=== PATIENT | female | born 1965 | race Caucasian/White ===

== ENCOUNTER 2018-03-28 09:43 | Emergency (ER) | payer OTHER ==
[2018-03-28 11:07] VITALS: BP 145/75
--- NOTE | 2018-03-28 11:35 | UC ---
Eye Complaint HPI - HPI Summary HPI Summary: The patient is a 52-year-old female with the onset of red itchy eyes that started yesterday. She is not a contact lens wear. She states they feel dry and irritated. She has no URI symptoms. She had similar but less severe symptoms about 2 months ago. - History of Current Complaint Chief Complaint: UCEye Stated Complaint: BILATERAL EYE CONCERN Time Seen by Provider: 03/28/18 11:30 Hx Obtained From: Patient Hx Last Menstrual Period: 11/2016 Onset/Duration: Gradual Onset, Lasting Hours Timing: Constant Severity Initially: Moderate Pain Intensity: 0 Pain Scale Used: 0-10 Numeric Location of Injury: Conjunctiva Aggravating Factor(s): Nothing Alleviating Factor(s): Nothing Associated Signs And Symptoms: Positive: Drainage (Purulent) - Allergies/Home Medications Allergies/Adverse Reactions: Allergies Allergy/AdvReac Type Severity Reaction Status Date / Time amoxicillin Allergy Hives Verified 03/28/18 11:01 Home Medications: Home Medications Cholecalciferol TAB* [Vitamin D TAB*] 1,000 unit PO DAILY 03/28/18 [History Confirmed 03/28/18] Sertraline* [Zoloft*] 100 mg PO DAILY 03/28/18 [History Confirmed 03/28/18] Simvastatin TAB(NF) [Zocor(NF)] 20 mg PO EVERY OTHER DAY 03/28/18 [History Confirmed 03/28/18] PMH/Surg Hx/FS Hx/Imm Hx Previously Healthy: Yes Endocrine History: Dyslipidemia Psychological History: Depression - Surgical History Surgical History: Yes Surgery Procedure, Year, and Place: D&Cs, 2007 2006 - Family History Known Family History: Positive: Hypertension - Social History Alcohol Use: Occasionally Substance Use Type: None Smoking Status (MU): Former Smoker Length of Time of Smoking/Using Tobacco: 1/2 PPD x 15 Years When Did the Patient Quit Smoking/Using Tobacco: 2006 Review of Systems All Other Systems Reviewed And Are Negative: Yes Constitutional: Positive: Negative Skin: Positive: Negative Eyes: Positive: Drainage, Eye Redness ENT: Positive: Negative Respiratory: Positive: Negative Cardiovascular: Positive: Negative Gastrointestinal: Positive: Negative Genitourinary: Positive: Negative Motor: Positive: Negative Neurovascular: Positive: Negative Musculoskeletal: Positive: Negative Neurological: Positive: Negative Psychological: Positive: Negative Physical Exam Triage Information Reviewed: Yes Appearance: Well-Appearing, No Pain Distress, Well-Nourished Vital Signs: Initial Vital Signs Temp 98.2 F 03/28/18 10:58 Pulse 80 03/28/18 10:58 Resp 18 03/28/18 10:58 BP 145/75 03/28/18 10:58 Pulse Ox 98 03/28/18 10:58 Eyes: Positive: Conjunctiva Inflamed, Other: - eomi/perrl ENT: Positive: Hearing grossly normal, Uvula midline. Negative: Nasal congestion, Nasal drainage, Tonsillar swelling, Tonsillar exudate, Trismus, Muffled voice, Hoarse voice, Dental tenderness, Sinus tenderness Neck: Positive: Supple, Nontender, No Lymphadenopathy Respiratory: Positive: Lungs clear, Normal breath sounds, No respiratory distress, No accessory muscle use Cardiovascular: Positive: RRR, No Murmur Musculoskeletal: Positive: ROM Intact, No Edema Neurological: Positive: Alert, Muscle Tone Normal Psychological Exam: Normal Skin Exam: Normal Eye Complaint Course/Dx - Differential Dx/Diagnosis Provider Diagnosis: Conjunctivitis, both eyes Discharge - Sign-Out/Discharge Documenting (check all that apply): Patient Departure All imaging exams completed and their final reports reviewed: No Studies - Discharge Plan Condition: Stable Disposition: HOME Prescriptions: Polymyx/Trimethoprim OPTH* [Polytrim OPHTH*] 1 - 2 drop BOTH EYES QID #1 btl Patient Education Materials: Conjunctivitis (ED) Referrals: Preeti Stewart PA [Primary Care Provider] - Additional Instructions: I suggest you use ZADITOR eye drops OTC as well as the drops prescribed recheck in 4 days if not better recheck sooner for new or worsening symptoms - Billing Disposition and Condition Condition: STABLE Disposition: Home
== END 2018-03-28 11:59 | disposition home or self-care (01) ==
LOC: UCCORT 09:43
DX: H10.9 Unspecified conjunctivitis (principal); Z88.0 Allergy status to penicillin; Z87.891 Personal history of nicotine dependence
CPT/HCPCS: 99202; G0463

== ENCOUNTER 2019-07-06 09:15 | Emergency (ER) | payer BC, OTHER ==
--- OUTSIDE RECORDS SUMMARY | 2019-07-06 09:50 | XMS REPORT | Continuity of Care Document ---
:1965 External Reference #:[id number] Author Name Preeti Stewart PA (transmitted by agent of provider Sonia Alcaraz) Address [address] [place] [address] Care Team Providers Name Role Phone Preeti Stewart PA - Medical Care Team Information Patient Financial Representative [phone] Problems Active Problems Provider Date Hyperlipidemia Preeti Stewart PA Onset: 09/13/2017 Anxiety state Preeti Stewart PA Onset: 09/13/2017 Social History Type Date Description Comments Sex Unknown ETOH Use Occasionally consumes alcohol Tobacco Use Start: Unknown End: Patient is a former smoker Started at 19. Unknown Infrequent smoker. Quit completely at age 39. Smoking Status Reviewed: 01/22/19 Patient is a former smoker Started at 19. Infrequent smoker. Quit completely at age 39. Allergies, Adverse Reactions, Alerts Active Allergies Reaction Severity Comments Date Amoxicillin 09/13/2017 Medications Active Medications SIG Qnty Indications Ordering Provider Date Sertraline HCL 1 tab by mouth 90tabs F41.9 Lorna Bynum, 06/26/2019 100mg every day MD Tablets Simvastatin Take 1 Tablet By 90tabs Lorna Bynum, 20mg Mouth Once Daily MD Tablets AT Bedtime Metoprolol Tartrate Take 1 Tablet By 90tabs Lorna Bynum, Mouth Once Daily MD 25mg Tablets Vitamin D One Tab PO Daily Unknown 1000 Medications Administered in Office Medication SIG Qnty Indications Ordering Provider Date PPD Injection Preeti Stewart PA 09/13/2017 Immunizations Description No Information Available Vital Signs Date Vital Result Comment 01/22/2019 9:35am BP Systolic 120 mmHg BP Diastolic 68 mmHg Body Temperature 98.0 F Heart Rate 78 /min Respiratory Rate 18 /min Height 63.5 inches 5'3.50" Weight 223.00 lb BMI (Body Mass Index) 38.9 kg/m2 BSA (Body Surface Area) 2.04 m2 [place] body weight in kilograms 53 kg O2 % BldC Oximetry 97 % 07/24/2018 10:39am BP Systolic Sitting Right Arm 118 mmHg BP Diastolic Sitting Right Arm 72 mmHg Body Temperature 97.7 F Heart Rate 78 /min Height 63.5 inches 5'3.50" Weight 221.00 lb BMI (Body Mass Index) 38.5 kg/m2 BSA (Body Surface Area) 2.03 m2 [place] body weight in kilograms 53 kg O2 % BldC Oximetry 98 % Results Test Acquired Date Facility Test Result H/L Range Note CBC 01/30/2019 [facility] White Blood 5.2 K/uL Normal 3.1-10.7 1 W/Automated [address] [place] [address] [phone] Red Blood Count 4.59 M/uL Normal 3.90-5.40 Hemoglobin 13.4 gm/dL Normal 11.6-15.8 Hematocrit 41.5 % Normal 36.0-46.1 Mean Cell Volume 90.4 fl Normal 80.9-99.0 Mean Corpuscular HGB 29.2 pg Normal 25.9-32.7 Mean Corpuscular HGB Conc 32.3 g/dL Normal 30.8-34.3 Platelet Count 307 K/uL Normal 155-360 Red Cell Distri Width SD 41.9 fl Normal 36-47 Red Cell Distri Width %CV 12.7 % Normal 11.7-14.4 Mean Platelet Volume 10.7 fl Normal 8.9-12.4 Neut% 58.8 % Normal 40.4-72.8 Lymph % 29.4 % Normal 20.0-42.0 [place] % 8.7 % Normal 4.3-13.2 Eo% 1.9 % Normal 0.0-6.6 Bas% 1.0 % Normal 0.0-1.1 Immature Grans 0.2 % Normal 0.0-5.0 NRBC % 0.0 /100WBC < 10/ 100 WBC Neut# 3.04 K/uL Normal 1.8-7.0 Lymph # 1.52 K/uL Normal 1.0-4.0 [place] # 0.45 K/uL Normal 0.3-0.9 Eos # 0.10 K/uL Normal 0.0-0.5 Baso # 0.05 K/uL Normal 0.0-0.1 Immature Grans Absolute 0.01 K/uL NRBC # 0.00 K/uL Comprehensive 01/30/2019 [facility] Glucose 100 mg/dL Normal 74-106 Metabolic Panel [address] [place] [address] [phone] BUN 9 mg/dL Normal 7-18 Creatinine 0.8 mg/dL Normal 0.6-1.3 Glom Filtration Rate, Estimate >60 mL/min >60 If >60 mL/min >60 2 BUN/Creat 11.2 ratio Sodium 137 mmol/L Normal 136-145 Potassium 4.2 mmol/L Normal 3.5-5.1 Chloride 108 mmol/L High 98-107 Carbon Dioxide 25 mmol/L Normal 21-32 Anion Gap 4 mEq/L Low 8-16 Calcium 8.5 mg/dL Normal 8.5-10.1 Total Protein 7.2 g/dL Normal 6.4-8.2 Albumin 3.9 g/dL Normal 3.4-5.0 Globulin 3.3 g/dL Normal 1.9-4.3 Alb/Glob 1.2 ratio Bilirubin,Total 0.6 mg/dL Normal 0.2-1.0 Sgot/Ast 21 U/L Normal 15-37 SGPT/Alt 30 U/L Normal 12-78 Alkaline Phosphatase 73 U/L Normal 45-117 Reflex add FT3? Y Reflex add FT4? Y TSH Reflex 01/30/2019 [facility] Thyroid Stim 1.35 uIU/mL Normal 0.30-4.20 FT4 And/Or [address] Hormone FT3 [place], [place] [id number] [phone] Reflex add FT3? Y Reflex add FT4? Y LDL Cholesterol Profile 01/30/2019 [facility] Cholesterol 182 mg/dL <[address] [place], [place] [id number] [phone] Triglycerides 93 mg/dL <150 4 HDL Cholesterol 58 mg/dL >40 5 LDL-Cholesterol 105 mg/dL < 100 6 Reflex add FT3? Y Reflex add FT4? Y Laboratory test 01/30/2019 [facility] Vitamin 38.0 30.0-100.0 7 finding [address] Johnson,25-Hydroxy ng/[place] [address] [phone] 1 E66.9 E78.5 E55.9 2 Note: Persistent reduction for 3 months or more in an eGFR <60 mL/min/1.73 m2 defines CKD. Patients with eGFR values >/=60 mL/min/1.73 m2 may also have CKD if evidence of persistent proteinuria is present. The original MDRD equation for estimated GFR is not valid for patients less than 18 years of age. Additional information may be found at www.kdoqi.org. 3 Reference Guidelines*: Desirable: ........... < 200 mg/dL Borderline High: ..... 200-239 mg/dL High: ................ >= 240 mg/dL * The National Cholesterol Education Program (NCEP) 4 Reference Guidelines*: Normal: ............. < 150 mg/dL Borderline High: .... 150-199 mg/dL High: ............... 200-499 mg/dL Very High: .......... > 500 mg/dL * Source: National Cholesterol Education Program (NCEP) 5 Reference Guidelines*: Low HDL: ..... < 40 mg/dL Normal: ..... 40-60 mg/dL Desirable: ... > 60 mg/dL *The National Cholesterol Education Program(NCEP) 6 Reference Guidelines*: Optimal:........... <100 mg/dL Near Optimal....... 100-129 mg/dL Borderline High.... 130-159 mg/dL High............... 160-189 mg/dL Very High.......... >=190 mg/dL * Source: National Cholesterol Education Program (NCEP) 7 Vitamin D deficiency has been defined by the [place] of Medicine and an Endocrine Society practice guideline as a level of serum 25-OH vitamin D less than 20 ng/mL (1,2). The Endocrine Society went on to further define vitamin D insufficiency as a level between 21 and 29 ng/mL (2). 1. IOM ([place] of Medicine). 2010. Dietary reference intakes for calcium and D. [place]: The National Academies Press. 2. Cristian MF, Mendoza MAE, Brandin SMART, et al. Evaluation, treatment, and prevention of vitamin D deficiency: an Endocrine Society clinical practice guideline. JCEM. 2010; 96():0301-30. Performed at: RN - [facility] [address] [id number] Inspector Shells: Chantel Walters MD, Phone: [phone] Procedures Date Code Description Status 04/03/2016 [id number] Mammogram Completed Medical Devices Description No Information Available Encounters Type Date Location Provider Dx Diagnosis Office Visit 01/22/2019 [facility] Preeti Stewart PA E78.5 Hyperlipidemia, 9:30a [facility] unspecified E55.9 Vitamin D deficiency, unspecified F41.9 Anxiety disorder, unspecified M54.2 Cervicalgia Assessments Date Code Description Provider 06/26/2019 F41.9 Anxiety disorder, unspecified Preeti Stewart PA 01/22/2019 E78.5 Hyperlipidemia, unspecified Preeti Stewart PA 01/22/2019 E55.9 Vitamin D deficiency, unspecified Preeti Stewart PA 01/22/2019 F41.9 Anxiety disorder, unspecified Preeti Stewart PA 01/22/2019 M54.2 Cervicalgia Preeti Stewart PA Plan of Treatment Future Appointment(s):07/23/2019 9:30 am - Preeti Stewart PA at [facility] RD06/26/2019 - Preeti Stewart, PAF41.9 Anxiety disorder, unspecifiedNew Medication:Sertraline HCL 100 mg - 1 tab by mouth every dayComments:She continues to work on a healthy diet and walks daily for exercise. Will double up on the current dose of Sertraline and I will send an updated Rx. Functional Status Functional Condition Comment Date Status Independent with all ADL's Active Mental Status Description No Information Available Referrals Refer to Reason for Referral Status Appt Date Brian Giang. 53 yo female with request for breast Patient Declined reduction. Has chronic neck and shoulder pain. Pain in shoulders from bra straps. Wears a 42DD. [address] [address] [phone]
--- OUTSIDE RECORDS SUMMARY | 2019-07-06 09:50 | XMS REPORT | Continuity of Care Document ---
:1965 External Reference #:[id number] Author Name Preeti Stewart PA (transmitted by agent of provider Selene Dukes) Address [address],[facility] [place] [address] Care Team Providers Name Role Phone Preeti Stewart PA - Medical Care Team Information Direct Casting Operator [phone] Problems Active Problems Provider Date Hyperlipidemia Preeti [...] Qnty Indications Ordering Provider Date Sertraline HCL Take 1 tablet by 90Lorna Jones, 04/16/2018 50mg mouth once daily MD Tablets Simvastatin Take 1 Tablet By 90taLorna Ku, 20mg Mouth Once Daily MD Tablets AT Bedtime Metoprolol Tartrate Take 1 Tablet By 90taLorna Ku, Mouth Once Daily MD 25mg Tablets Vitamin [...] kg/m2 BSA (Body Surface Area) 2.04 m2 [place] body weight in kilograms 53 kg O2 % BldC Oximetry 97 % 07/24/2018 10:39am BP Systolic Sitting Right Arm 118 mmHg BP Diastolic Sitting Right Arm 72 mmHg Body Temperature 97.7 F Heart Rate 78 /min Height 63.5 inches 5'3.50" Weight 221.00 lb BMI (Body Mass Index) 38.5 kg/m2 BSA (Body Surface Area) 2.03 m2 [place] body weight in kilograms 53 kg O2 % BldC Oximetry 98 % Results Test Acquired Date Facility Test Result H/L Range Note CBC 01/30/2019 [facility] White Blood 5.2 K/uL Normal 3.1-10.7 1 W/Automated [address] [place] [address] [phone] Red Blood Count 4.59 M/uL Normal 3.90-5.40 [...] 40.4-72.8 Lymph % 29.4 % Normal 20.0-42.0 [place] % 8.7 % Normal 4.3-13.2 Eo% 1.9 % Normal 0.0-6.6 Bas% 1.0 % Normal 0.0-1.1 Immature Grans 0.2 % Normal 0.0-5.0 NRBC % 0.0 /100WBC < 10/ 100 WBC Neut# 3.04 K/uL Normal 1.8-7.0 Lymph # 1.52 K/uL Normal 1.0-4.0 [place] # 0.45 K/uL Normal 0.3-0.9 Eos # 0.10 K/uL Normal 0.0-0.5 Baso # 0.05 K/uL Normal 0.0-0.1 Immature Grans Absolute 0.01 K/uL NRBC # 0.00 K/uL Comprehensive 01/30/2019 [facility] Glucose 100 mg/dL Normal 74-106 Metabolic Panel [address] [place] [address] [phone] BUN 9 mg/dL Normal 7-18 Creatinine 0.8 [...] Reflex add FT4? Y TSH Reflex 01/30/2019 [facility] Thyroid Stim 1.35 uIU/mL Normal 0.30-4.20 FT4 And/Or [address] Hormone FT3 [place], [place] [id number] [phone] Reflex add FT3? Y Reflex add FT4? Y LDL Cholesterol Profile 01/30/2019 [facility] Cholesterol 182 mg/dL <[address] [place] [address] [phone] Triglycerides 93 mg/dL <150 4 HDL Cholesterol 58 mg/dL >40 5 LDL-Cholesterol 105 mg/dL < 100 6 Reflex add FT3? Y Reflex add FT4? Y Laboratory test 01/30/2019 [facility] Vitamin 38.0 30.0-100.0 7 finding [address] Johnson,25-Hydroxy ng/[place] [address] [phone] 1 E66.9 E78.5 E55.9 2 Note: Persistent [...] D deficiency has been defined by the [place] of Medicine and an Endocrine Society practice guideline as a level of serum 25-OH vitamin D less than 20 ng/mL (1,2). The Endocrine Society went on to further define vitamin D insufficiency as a level between 21 and 29 ng/mL (2). 1. IOM ([place] of Medicine). 2010. Dietary reference intakes for calcium and D. [place]: The National Academies Press. 2. Cristian MF, Mendoza MAE, Brandin SMART, et al. Evaluation, treatment, and prevention of vitamin D deficiency: an Endocrine Society clinical practice guideline. JCEM. 2010; 96(7):1911-30. Performed at: RN - [facility] [address] [id number] Follow Up Rep: Chantel Walters MD, Phone: [phone] Procedures Date Code Description Status 04/03/2016 [id number] Mammogram Completed Medical Devices Description No Information Available Encounters Type Date Location Provider Dx Diagnosis Office Visit 01/22/2019 [facility] Preeti Stewart PA E78.5 Hyperlipidemia, 9:30a [facility] unspecified E55.9 Vitamin D deficiency, unspecified F41.9 Anxiety disorder, unspecified M54.2 Cervicalgia Assessments Date Code Description Provider 01/22/2019 E78.5 Hyperlipidemia, unspecified Preeti Stewart PA 01/22/2019 E55.9 Vitamin D deficiency, unspecified Preeti Stewart PA 01/22/2019 F41.9 Anxiety disorder, unspecified Preeti Stewart PA 01/22/2019 M54.2 Cervicalgia Preeti Stewart PA Plan of Treatment Future Appointment(s):07/23/2019 9:30 am - Preeti Stewart PA at [facility]01/22/2019 - Preeti Stewart PAE78.5 Hyperlipidemia, unspecifiedComments:Fasting labs are due. Patient will return for blood draw. Follow up pending results.E55.9 Vitamin D deficiency, unspecifiedComments: Repeat labs are due. Patient will return to lab for fasting blood draw.F41.9 Anxiety disorder, unspecifiedComments:Occasional irritation due to noises. Feels like she needs to escape it. However, this is not happening to often. Continue Sertraline daily and Metoprolol as needed.Follow up:6 months.M54.2 CervicalgiaComments:Large breast size attributed to pain. Will ask about coverage for breast reduction. Functional Status Functional Condition Comment Date Status Independent with all ADL's Active Mental Status Description No Information Available Referrals Refer to Reason for Referral Status Appt Date Padmaja, Brian. 53 yo female with request for breast Patient Declined reduction. Has chronic neck and shoulder pain. Pain in shoulders from bra straps. Wears a 42DD. [address] [address] [phone]
--- NOTE | 2019-07-06 10:28 | UC ---
FLU HPI - History of Current Complaint Chief Complaint: UCRespiratory Stated Complaint: COUGH Time Seen by Provider: 07/06/19 10:27 Hx Last Menstrual Period: 11/2016 Pain Intensity: 0 - Allergy/Home Medications Allergies/Adverse Reactions: Allergies Allergy/AdvReac Type Severity Reaction Status Date / Time amoxicillin Allergy Hives Verified 07/06/19 09:52 Home Medications: Home Medications Cholecalciferol TAB* [Vitamin D TAB*] 1,000 unit PO DAILY 03/28/18 [History Confirmed 07/06/19] Sertraline* [Zoloft*] 50 mg PO DAILY 03/28/18 [History Confirmed 07/06/19] Simvastatin TAB(NF) [Zocor(NF)] 20 mg PO EVERY OTHER DAY 03/28/18 [History Confirmed 07/06/19] Guaifen/Dextromethorphan/PE [Mucus Relief Severe Conge 2.5-5-100 mg/5Ml] 1 liq PO Q4H 07/06/19 [History Confirmed 07/06/19] Magnesium Oxide [Magnesium] 400 mg PO Q48H 07/06/19 [History Confirmed 07/06/19] Multivitamin [Multivitamins] 1 cap PO Q48H 07/06/19 [History Confirmed 07/06/19] PMH/Surg Hx/FS Hx/Imm Hx - Surgical History Surgical History: Yes Surgery Procedure, Year, and Place: D&Cs, 2007 2006 - Family History Known Family History: Positive: Hypertension - Social History Alcohol Use: Occasionally Substance Use Type: None Smoking Status (MU): Former Smoker Length of Time of Smoking/Using Tobacco: 1/2 PPD x 15 Years When Did the Patient Quit Smoking/Using Tobacco: 2006 Discharge ED - Discharge Plan Referrals: Preeti Stewart PA [Primary Care Provider] -
--- NOTE | 2019-07-06 10:53 | UC ---
Respiratory Complaint HPI - HPI Summary HPI Summary: 53 yo, generally well, with onset of non-productive cough, "raw chest", laryngitis x 2-3 days. Mild headache, but no fever, chills, dyspnea or chest pain. 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 Otherwise feels well enough to be active; no fatigue or myalgias. Using cough drops only for relief of cough. - History of Current Complaint Chief Complaint: UCRespiratory Stated Complaint: COUGH Time Seen by Provider: 07/06/19 10:27 Hx Obtained From: Patient Hx Last Menstrual Period: 11/2016 Onset/Duration: Gradual Onset, Lasting Days Timing: Intermittent Episodes Severity Initially: Mild Severity Currently: Moderate Pain Intensity: 0 Character: Cough: Nonproductive Aggravating Factors: Allergens, Recumbent Position Associated Signs And Symptoms: Positive: Negative - Risk Factors Pulmonary Embolism Risk Factors: Negative Cardiac Risk Factors: Negative Pseudomonas Risk Factors: Negative Tuberculosis Risk Factors: Negative - Allergies/Home Medications Allergies/Adverse Reactions: Allergies Allergy/AdvReac Type Severity Reaction Status Date / Time amoxicillin Allergy Hives Verified 07/06/19 09:52 Home Medications: Home Medications Cholecalciferol TAB* [Vitamin D TAB*] 1,000 unit PO DAILY 03/28/18 [History Confirmed 07/06/19] Sertraline* [Zoloft*] 50 mg PO DAILY 03/28/18 [History Confirmed 07/06/19] Simvastatin TAB(NF) [Zocor(NF)] 20 mg PO EVERY OTHER DAY 03/28/18 [History Confirmed 07/06/19] Benzonatate CAP* [Tessalon 100 MG CAP*] 100 mg PO TID PRN #30 cap 07/06/19 [Rx] Guaifen/Dextromethorphan/PE [Mucus Relief Severe Conge 2.5-5-100 mg/5Ml] 1 liq PO Q4H 07/06/19 [History Confirmed 07/06/19] Magnesium Oxide [Magnesium] 400 mg PO Q48H 07/06/19 [History Confirmed 07/06/19] Multivitamin [Multivitamins] 1 cap PO Q48H 07/06/19 [History Confirmed 07/06/19] PMH/Surg Hx/FS Hx/Imm Hx Psychological History: Anxiety - Surgical History Surgical History: Yes Surgery Procedure, Year, and Place: D&Cs, 2007 2006 - Family History Known Family History: Positive: Hypertension - Social History Occupation: Employed Full-time Lives: With Family Alcohol Use: Occasionally Substance Use Type: None Smoking Status (MU): Former Smoker Length of Time of Smoking/Using Tobacco: 1/2 PPD x 15 Years When Did the Patient Quit Smoking/Using Tobacco: 2006 Review of Systems All Other Systems Reviewed And Are Negative: Yes Constitutional: Positive: Negative Skin: Positive: Negative Eyes: Positive: Negative ENT: Positive: Other - post nasal drainage and hoarse voice Respiratory: Positive: Cough. Negative: Shortness Of Breath Cardiovascular: Negative: Palpitations, Chest Pain Gastrointestinal: Positive: Negative Genitourinary: Positive: Negative Motor: Positive: Negative Neurovascular: Positive: Negative Musculoskeletal: Positive: Negative Neurological/Mental Status: Positive: Negative Psychological: Positive: Negative Is Patient Immunocompromised?: No Physical Exam Triage Information Reviewed: Yes Appearance: Well-Appearing, No Pain Distress, Obese ENT: Positive: Pharyngeal erythema Neck: Positive: Supple, Nontender, No Lymphadenopathy Respiratory: Positive: Lungs clear, Normal breath sounds, No respiratory distress Cardiovascular: Positive: RRR, No Murmur Musculoskeletal Exam: Normal Neurological Exam: Normal Neurological: Positive: Alert, Muscle Tone Normal Psychological Exam: Normal Skin Exam: Normal Respiratory Course/Dx - Course Course Of Treatment: Discussed mild symptoms suggestive of allergies or viral illness. Given increase in cough, anxiety and her work in a residential setting, advised COVID testing followed by isolation. - Differential Dx/Diagnosis Differential Diagnosis/HQI/PQRI: Asthma, Bronchitis, Laryngitis, Lower Resp Infection Provider Diagnosis: URI (upper respiratory infection) Discharge ED - Sign-Out/Discharge Documenting (check all that apply): Patient Departure All imaging exams completed and their final reports reviewed: No Studies - Discharge Plan Condition: Stable Disposition: HOME Prescriptions: Benzonatate CAP* [Tessalon 100 MG CAP*] 100 mg PO TID PRN #30 cap PRN Reason: Cough Patient Education Materials: Upper Respiratory Infection (ED) Forms: COVID-19 Tested & Isolation Referrals: Preeti Stewart PA [Primary Care Provider] - Additional Instructions: Pending results of COVID testing, you are to remain isolated in a single room and using a private bathroom if possible. You have a prescription for tessalon perles for cough suppression. Continue symptomatic treatment, but you might also try use of a different antihistamine. Over the counter cetirazine 10mg once daily OR fexofenadine 180mg once daily are good choices. You can continue use of guiafensin. - Billing Disposition and Condition Condition: STABLE Disposition: Home
[2019-07-06 11:06] VITALS: BP 145/82
== END 2019-07-06 11:25 | disposition home or self-care (01) ==
LOC: UCCORT 09:15
DX: J06.9 Acute upper respiratory infection, unspecified (principal); R05 Cough; Z20.828 Contact with and (suspected) exposure to other viral communicable diseases; F41.9 Anxiety disorder, unspecified; Z79.899 Other long term (current) drug therapy; Z88.0 Allergy status to penicillin; Z87.891 Personal history of nicotine dependence
CPT/HCPCS: 87635; 99211; G0463